=== PATIENT | male | born 1945 | race Caucasian/White ===

== ENCOUNTER 2016-08-15 05:31 | Day surgery (SDC) | payer BC, OTHER ==
[~2016-08-15] VITALS: Ht 182.9 cm; Wt 93.0 kg
[~2016-08-15 05:31] MED LIST: AMLODIPINE BESY10 MG PO; ASPIRIN81 M1 PO; B COMPLETE1 EACH PO; BYSTOLIC10 MG PO; LIPITOR20 MG PO; LIPITOR40 MG PO; LO-DOSE ASPIRIN81 M2 PO; NEXIUM40 MG PO; ZYRTEC10 M3 PO
[2016-08-15 06:18] VITALS: BP 130/79
[2016-08-15 06:26] VITALS: BP 130/79
[2016-08-15] MEDS ORDERED: COLACE100 MG PO (09:48)
[2016-08-15] MEDS ORDERED: PERCOCET 5/31 TABLET PO (09:48)
[2016-08-15 10:10] VITALS: BP 153/74
[2016-08-15 11:05] VITALS: BP 137/7
== END 2016-08-15 11:20 | disposition home or self-care (01) ==
LOC: SDC
DX: K40.90 Unilateral inguinal hernia, without obstruction or gangrene, not specified as recurrent (principal); D17.6 Benign lipomatous neoplasm of spermatic cord; K21.9 Gastro-esophageal reflux disease without esophagitis; E78.5 Hyperlipidemia, unspecified; E03.9 Hypothyroidism, unspecified; I11.9 Hypertensive heart disease without heart failure; M54.16 Radiculopathy, lumbar region; Z68.27 Body mass index [BMI] 27.0-27.9, adult; E66.3 Overweight; Z79.82 Long term (current) use of aspirin; Z88.2 Allergy status to sulfonamides
CPT/HCPCS: 88304; C1781; J0690; J1885; J2405; J2765; J3010